=== PATIENT | female | born 1950 | race Caucasian/White ===

== ENCOUNTER 2021-04-11 05:22 | Observation (INO) | payer MEDICARE, MEDICAID, SELFPAY ==
[2021-04-11] VITALS (8 sets, daily range): BP systolic 97–112; BP diastolic 56–88; PULSE 62–99; RESP 16–20; TEMP 36.6–37.7; O2SAT 92–98; BMI 20.9
--- NOTE | ~2021-04-11 | XR_ITS ---
XR abdomen/kub 1V 04/12/2021 09:04 Indication: Small bowel obstruction Procedure: KUB Comparison: 11/03/[address] dated 04/11/2021 Findings: There is dilated small bowel measuring up to 6 cm, consistent with obstruction. There is fe lebron impaction of the rectum. There is mass effect on the bladder, likely secondary to cystic mass see n on prior CT dated 04/11/2021 Impression: 1: Dilated small bowel, consistent with obstruction. 2: Fecal impaction of the rectum. Reviewed, dictated and finalized at location A. F MEDIA OFFICER Impression: 1: Dilated small bowel, consistent with obstruction. 2: Fecal impaction of the rectum.
--- NOTE | ~2021-04-11 | XR_ITS ---
EXAMINATION: XR chest 1V portable 04/11/2021 05:43 INDICATION: Vomiting and dyspnea PROCEDURE: AP portable chest COMPARISON: 12/25/2016 FINDINGS: The lungs are clear. The cardiomediastinal silhouette is enlarged. Chronically elevated le ft diaphragm, suspicious for phrenic nerve paralysis. There are no pleural effusions. There is no p neumothorax suspected. IMPRESSION: 1: NO ACUTE CARDIOPULMONARY DISEASE. Reviewed, dictated and finalized at location A. ORK SYSTEMS CONSULTANT
--- NOTE | ~2021-04-11 | CT_ITS ---
EXAMINATION: CT abdomen pelvis w con DATE: 04/11/2021 07:31 INDICATION: Coffee colored emesis. TECHNIQUE: Computed tomography (CT) of the abdomen and pelvis was performed with 100 cc Omnipaque 350 intravenous contrast. The dose-length product was 439.42 mGy-cm. Automated exposure control and iter ative reconstruction technique were employed. COMPARISON: CT dated 04/04/2011 FINDINGS: There is left lower lobe airspace disease, suspicious for pneumonia. There is a 12 mm right lower lobe nodule, image 7. There is a 3 mm right middle lobe nodule, image 25. There is a pleural-b ased right lower lobe nodule measuring 4 mm, image 27. There is elevation of the left diaphragm. There is fluid in dilated distal esophagus with hiatal hernia. There is significant distention of the stomach and diffusely throughout the small bowel containing fluid, consistent with obstruction with exact transition site not identified. There is fecal impaction of the rectum. There is a large comple x cystic mass centered in the anterior lower abdomen/pelvis measuring 20.3 x 12.8 x 22.3 cm, concerni ng for ovarian adenocarcinoma. The bladder is decompressed with mass effect from these cystic mass. There is intrahepatic and extrahepatic biliary dilatation. No obstructing mass identified. There is a small low-density lesion in the spleen measuring 1 cm, image 30, indeterminate. There is a 2.2 cm co mplex right adrenal mass. There is heterogeneity to the left adrenal gland which is thickened, with 1 .4 cm mass. There is bilateral renal cortical thinning. There are small sclerotic lesions of the pelv is, likely bone islands. There is lower thoracic and lumbar spondylosis. There is levoscoliosis. IMPRESSION: 1. Large complex cystic mass centered in the anterior lower abdomen/pelvis measuring up to 22.3 cm, c oncerning for ovarian adenocarcinoma. 2: Small bowel obstruction, transition site not definitely identified. 3: Intrahepatic and extrahepatic biliary dilatation. Consider correlation with MRCP examination to fu rther evaluate for underlying mass or stone. 4: Right lower lobe nodules measuring up to 12 mm. Cannot exclude metastatic disease. 5: Bilateral adrenal masses which may relate to benign adenomas or metastatic disease. Reviewed, dictated and finalized at location A. CHING CLERK IMPRESSION: 1. Large complex cystic mass centered in the anterior lower abdomen/pelvis noemi uring up to 22.3 cm, concerning for ovarian adenocarcinoma. 2: Small bowel obstruction, transition site not definitely identified. 3: Intrahepatic and extrahepatic biliary dilatation. Consider correlation with MRCP examination to further evaluate for underlying mass or stone. 4: Right lower lobe nodules measuring up to 12 mm. Cannot exclude metastatic d isease. 5: Bilateral adrenal masses which may relate to benign adenomas or metastatic disease.
--- NOTE | 2021-04-11 05:25 | ECG_ITS ---
Measurements Intervals [place] Rate: 103 P: 107 MT: 174 QRS: 173 QRSD: 120 T: 56 QT: 362 QTc: 475 Interpretive Statements SINUS TACHYCARDIA ATRIAL PREMATURE COMPLEXES RIGHT AXIS DEVIATION RIGHT BUNDLE BRANCH BLOCK BASELINE ARTIFACT- I, II, III, AVR, AVL, AVF, V2, V4-V6 ABNORMAL ECG Electronically Signed On 04-11-2021 7:15:21 PHOTO MACHINE OPERATOR by Jairon Warner D.O.
[2021-04-11 05:50] LABS: Basophils Absolute Auto 0.03 K/mm3 (0.00-0.10); Basophils Percent Auto 0.3 % (0.0-1.0); Hemoglobin 15.9 g/dL (11.7-13.8); Immature Granulocyte Absolute 0.03 K/mm3 (0.00-0.00); Immature Granulocyte Percent A 0.3 % (0.0-0.0); Mean Corpuscular HGB Conc 31.8 g/dL (32.0-36.0); Mean Corpuscular Hemoglobin 28.3 pg (27.0-31.0); Mean Platelet Volume 9.7 fl (9.2-11.8); Monocytes Percent Auto 4.4 % (2.0-11.0); Platelet Count Result 392 K/mm3 (150-420); Red Blood Count 5.62 M/mm3 (4.20-5.40); Red Cell Distribution Width 15.1 % (11.6-14.4); White Blood Count 11.4 K/mm3 (4.8-10.8)
[2021-04-11 05:51] LABS: Base Excess ABG 2.1 mmol/L (0-2); HCO3 ABG 24.6 mmol/L (23-29); Oxygen Content ABG 21.9 %vol (16.0-22.0); Oxygen Saturation ABG 96.5 % (95-97); Oxyhemoglobin 94.4 % (94-100); Total Hemoglobin 16.5 g/dL (12.0-18.0); pH ABG 7.49 (7.35-7.45)
[2021-04-11 05:52] LABS: Device ROOM AIR; Modified Allen's Test Pass; Site Drawn RIGHT RADIAL
--- NOTE | 2021-04-11 06:01 | ED.SOB ---
HPI - SOB/Dyspnea General Chief Complaint: Shortness of Breath/Dyspnea Stated Complaint: VOMITING Time Seen by Provider: 04/11/21 05:24 Source: patient, EMS and RN notes reviewed Mode of arrival: EMS Limitations: no limitations History of Present Illness HPI Narrative: Pt vomited coffee-colored emesis. no blood in the stool. no vomiting in the ED. no acute chest pain Onset (ago): hour(s) (2) Timing: intermittent Severity: mild Exacerbating factors: nothing Relieving factors: nothing Known history of: other (depression) Associated symptoms: denies other symptoms Treatment prior to arrival: none Related Data Home oxygen amount: none Home Medications Medication Instructions Recorded Confirmed aripiprazole 5 mg PO DAILY 04/11/21 04/11/21 buspirone 10 mg PO BID 04/11/21 04/11/21 mirtazapine 7.5 mg PO HS 04/11/21 04/11/21 trazodone 50 mg PO HS 04/11/21 04/11/21 Allergies Allergy/AdvReac Type Severity Reaction Status Date / Time strawberry Allergy Mild Unknown Verified 04/11/21 05:40 tomato Allergy Mild Unknown Verified 04/11/21 05:40 coffee (Coffea arabica) Allergy Unknown Unknown Verified 04/11/21 05:40 omeprazole Allergy Unknown Verified 04/11/21 05:40 Review of Systems Review of Systems: All systems reviewed & are unremarkable except as noted in HPI and below PMFSH Past Medical History Medical History (Updated 04/13/21 @ 11:47 by Estevan Peñaloza NP) Gastroenteritis GERD (gastroesophageal reflux disease) Weakness Social History Social History Second hand tobacco smoke exposure: Yes Alcohol intake: former Substance use type: does not use Spiritual care concerns: Yes Exam Const: General: no acute distress and alert Nutritional Appearance: obese Orientation/consciousness: patient oriented x3 Limitations: no limitations Other: Pt has mild tremor HENMT: Head: normal to inspection Ears: external ears normal, TM's normal bilaterally and EAC's normal General nose exam: Normal external nose present and Normal nares present Face and sinus: normal facial exam and sinuses nontender Mouth: Yes lip normal and Yes moist mucous membranes Eyes: Conjunctivae: conjunctivae normal Pupils: Equal, round and reactive pupils present EOM: EOMs intact bilaterally Neck: Neck: normal visual inspection Chest: Chest palpation & inspection: normal inspection of the chest Resp: Effort & Inspection: normal respiratory effort Auscultation: clear to auscultation bilaterally Cardio: Rate: regular rate Rhythm: regular rhythm GI: GI Palp: Yes Soft to palpation and No Tenderness to palpation present (GI) Auscultation: normal bowel sounds Other: pt refused rectal exam : General: Yes bladder normal to palpation and Yes no CVA tenderness Back/Spine/Pelvis: Back: no CVA tenderness Skin: General skin exam: normal color Rashes: no rashes Neuro: General: patient oriented x3, moves all extremities, no meningeal signs, no focal motor deficits and CN's II-XI intact bilaterally Extrem: General: normal to inspection and no pedal edema Psych: Mental Status: mental status grossly normal Thought content: Yes Normal thought content present Course Course Emergency Course: Pt was d/w Hospitalist ELEVATOR PILOT Ms Barreto and accepted for admission via ED MD. Reevaluation(s) Reevaluation #1: DOMINICS. Date: 04/11/21 Time: 06:20 Vital Signs Vital signs: Vital Signs Temperature 36.6 C 04/11/21 05:31 Pulse Rate 92 04/11/21 05:31 Respiratory Rate 18 04/11/21 05:31 Blood Pressure 110/88 04/11/21 05:31 Pulse Oximetry 98 04/11/21 05:31 Temperature 36.6 C 04/13/21 07:35 Pulse Rate 81 04/13/21 07:35 Respiratory Rate 18 04/13/21 07:35 Blood Pressure 101/63 04/13/21 07:35 Pulse Oximetry 91 04/13/21 07:35 MDM - SOB/Dyspnea Differential Diagnosis Differential diagnosis: Likely other Medical Records Attestation: I reviewed the patient's me
--- NOTE | 2021-04-11 06:10 | PC.NURSE ---
Facility called for paperwork, stated will fax over
[2021-04-11 06:11] LABS: Lactic Acid Reflex 1.7 mmol/L (0.4-2.0)
[2021-04-11 06:12] LABS: Alanine Aminotransferase 18 U/L (14-59); Albumin Level 3.4 g/dL (3.4-5.0); Alkaline Phosphatase 104 U/L (46-116); Anion Gap 16 mmol/L (8-16); Aspartate Amino Transferase 21 U/L (15-37); Bilirubin,Total 0.7 mg/dL (0.00-1.00); Blood Urea Nitrogen 47 mg/dL (7-18); Calcium 9.4 mg/dL (8.5-10.1); Carbon Dioxide 26 mmol/L (21-32); Chloride 97 mmol/L (98-108); Estimated CRCL calculation 34 ml/min; Estimated Glomerular Filt Rate 35; Glucose 176 mg/dL (70-99); NT Pro B Type Natriuretic Pept 1894 pg/mL (0-125); Osmolality Calculated 304 mOsm/kg (285-295); Potassium 4.2 mmol/L (3.5-5.1); Sodium 139 mmol/L (136-145); Total Protein 9.2 g/dL (6.4-8.2); Troponin I 42.3 ng/L (0.00-60.4)
[2021-04-11 06:14] LABS: SARS-CoV-2 Ag Negative (Negative)
[2021-04-11] MEDS: ONDANSETRON INJ 4 MG/2 ML VIAL IV PUSH (06:35)
[2021-04-11] MEDS: PANTOPRAZOLE SODIUM IV 40 MG VIAL IV PUSH (06:35)
[2021-04-11] MEDS: SODIUM CHLORIDE 0.9% IV 500 ML 999 ML IV CONT ×2 (06:35→08:29)
--- NOTE | 2021-04-11 06:42 | ECG_ITS ---
Measurements Intervals [place] Rate: 101 P: [place]: 0 QRS: 207 QRSD: 129 T: 49 QT: 376 QTc: 487 Interpretive Statements SINUS TACHYCARDIA FREQUENT ATRIAL PREMATURE COMPLEXES RIGHT BUNDLE BRANCH BLOCK LEFT POSTERIOR FASCICULAR BLOCK BASELINE ARTIFACT- I, II, III, AVR, AVL, AVF, V3 ABNORMAL ECG Electronically Signed On 04-11-2021 8:46:31 CONTINUOUS WELD PIPE MILL SUPERVISOR by Jairon Warner D.O.
--- NOTE | 2021-04-11 06:50 | PC.NURSE ---
Pt refusing all further treatment and states she wishes to go back to facility. Called facility to see if there is POA, facility states no and is calling their public health administrator because they don't want pt back without explanation.
--- NOTE | 2021-04-11 07:01 | PC.NURSE ---
Spoke to Karen Jennings, she spoke with patient and talked her into staying and doing CT [phone]
--- NOTE | 2021-04-11 08:05 | ED.NAVMDI ---
HPI - Nausea/Vomiting/Diarrhea General Chief complaint: Shortness of Breath/Dyspnea Stated complaint: VOMITING Time Seen by Provider: 04/11/21 05:24 Source: patient, EMS and RN notes reviewed Mode of arrival: EMS Limitations: no limitations History of Present Illness HPI Narrative: this is a 70-year-old female that presents via EMS from [facility] with some an episode of vomiting initially felt mildly short of breath, earlier that morning the patient had chocolate cupcake and had emesis after she ate that cupcake. With some mild abdominal discomfort currently no abdominal pain but her abdomen is distended, she she denies any chest pain currently no shortness of breath, her nausea has subsided there is no dysuria no flank pain no fever chills. Patient has a extensive psych history and is currently taking medicine to that affect. Patient also complains of being tired and weakness with no diarrhea or constipation. MD elicited complaint: nausea and vomiting Pertinent past history: anorexia Onset (ago): hour(s) Description of vomiting: food contents Associated nausea: Yes Associated abdominal pain: Yes Location of pain: diffuse Radiation: diffuse Pain consistency: now resolved Severity: mild Exacerbating factors: none Relieving factors: none Related Data Home Medications Medication Instructions Recorded Confirmed aripiprazole 5 mg PO DAILY 04/11/21 04/11/21 buspirone 10 mg PO DAILY 04/11/21 04/11/21 mirtazapine 7.5 mg PO DAILY 04/11/21 04/11/21 trazodone 50 mg PO DAILY 04/11/21 04/11/21 Allergies Allergy/AdvReac Type Severity Reaction Status Date / Time strawberry Allergy Mild Unknown Verified 04/11/21 05:40 tomato Allergy Mild Unknown Verified 04/11/21 05:40 coffee (Coffea arabica) Allergy Unknown Unknown Verified 04/11/21 05:40 omeprazole Allergy Unknown Verified 04/11/21 05:40 Review of Systems Review of Systems: All systems reviewed & are unremarkable except as noted in HPI and below PMFSH Past Medical History Medical History Gastroenteritis Exam Const: General: no acute distress and alert Orientation/consciousness: patient oriented x3 HENMT: Head: normal to inspection Eyes: Pupils: Equal, round and reactive pupils present EOM: EOMs intact bilaterally Direct Ophthalmoscopy: no photophobia Neck: Neck: normal visual inspection, no lymphadenopathy and no meningeal signs Chest: Chest palpation & inspection: normal inspection of the chest Resp: Effort & Inspection: normal respiratory effort Auscultation: clear to auscultation bilaterally Cardio: Rate: regular rate and tachycardic Rhythm: abnormal rhythm GI: Inspection: distended GI Palp: Yes Rigid due to palpation Auscultation: Hypoactive bowel sounds present : General: Yes no CVA tenderness Urinary Catheter: Urinary Catheter: patent and draining Skin: General skin exam: normal color Rashes: no rashes Neuro: General: patient oriented x3, moves all extremities, no meningeal signs and no focal motor deficits Extrem: General: normal to inspection and no pedal edema Psych: Appearance: disheveled Mental Status: mental status grossly normal Attitude: cooperative Course Course Emergency Course: labs and CT scan of abdomen reviewed with patient which show small bowel obstruction with some not I would transition point with a large complex cystic mass measuring 22.3cm, she is COVID negative her troponins are negative lactic acid is 1.7 current dose O2 sats 93% with a blood pressure 104/75. The patient received IV fluids. After discussion with the patient with the above findings the patient subsequently once to changed to a DNR status and comfort care only on hospice. Talked to Karen the process excellence manager of [facility] and she is aware of the patient Condition. will admit patient, patient DNR and comfort care at this point. Vital Signs Vital signs: Vital Signs Temperature
[2021-04-11] MEDS: ENOXAPARIN 40 MG/0.4 ML SYRINGE SUB-Q (09:35)
--- NOTE | 2021-04-11 10:10 | PC.NURSE ---
Patient arrived to floor from ER via stretcher. Two assist to transfer from stretcher to bed. Patient is NPO due to bowel obstruction. Hospice to consult with patient tomorrow r/t abdominal mass with mets.
[2021-04-11] MEDS: SODIUM CHLORIDE 0.9% IV 1,000 ML 100 ML IV CONT ×2 (11:10→21:23)
[2021-04-12] VITALS: BP 112/71; PULSE 85; RESP 18; TEMP 37.2; O2SAT 92
[2021-04-12 05:16] LABS: Basophils Absolute Auto 0.01 K/mm3 (0.00-0.10); Basophils Percent Auto 0.1 % (0.0-1.0); Hematocrit 42.3 % (35.0-42.0); Hemoglobin 13.2 g/dL (11.7-13.8); Immature Granulocyte Absolute 0.02 K/mm3 (0.00-0.00); Immature Granulocyte Percent A 0.3 % (0.0-0.0); Lymphocytes Absolute Auto 0.83 K/mm3 (1.10-4.50); Lymphocytes Percent Auto 11.6 % (18.0-42.0); Mean Corpuscular HGB Conc 31.2 g/dL (32.0-36.0); Mean Corpuscular Hemoglobin 28.5 pg (27.0-31.0); Mean Corpuscular Volume 91.4 fL (78.0-102.0); Mean Platelet Volume 9.5 fl (9.2-11.8); Monocytes Absolute Auto 0.43 K/mm3 (0.10-0.90); Neutrophils Absolute Auto 5.9 K/mm3 (1.7-7.2); Platelet Count Result 305 K/mm3 (150-420); Red Blood Count 4.63 M/mm3 (4.20-5.40); Red Cell Distribution Width 15.7 % (11.6-14.4); White Blood Count 7.2 K/mm3 (4.8-10.8)
[2021-04-12 05:27] LABS: Anion Gap 8 mmol/L (8-16); Blood Urea Nitrogen 56 mg/dL (7-18); Calcium 8.4 mg/dL (8.5-10.1); Carbon Dioxide 26 mmol/L (21-32); Chloride 105 mmol/L (98-108); Estimated CRCL calculation 32 ml/min; Estimated Glomerular Filt Rate 40; Glucose 100 mg/dL (70-99); Osmolality Calculated 303 mOsm/kg (285-295); Potassium 4.9 mmol/L (3.5-5.1); Sodium 139 mmol/L (136-145)
[2021-04-12] MEDS: ONDANSETRON INJ 4 MG/2 ML VIAL IV PUSH ×2 (07:20→13:32)
[2021-04-12] MEDS: SODIUM CHLORIDE 0.9% IV 1,000 ML 100 ML IV CONT ×2 (07:41→17:21)
[2021-04-12 08:00] VITALS: BP 104/69; PULSE 83; RESP 16; TEMP 36.4; O2SAT 91
--- NOTE | 2021-04-12 09:26 | PC.NURSE ---
phone call to [facility] to inform them of possible return today and she would be under hospice care. talked with photographic hand developer josué. she is aware and claims [facility] is okay. phone call to [facility] and waiting return call.
[2021-04-12] MEDS: MIRTAZAPINE 7.5 MG TABLET PO (09:47)
[2021-04-12] MEDS: busPIRone HCL 5 MG TABLET 10 MG PO (09:47)
[2021-04-12] MEDS: traZODone HCL 50 MG TABLET PO (09:48)
[2021-04-12] MEDS: ENOXAPARIN 40 MG/0.4 ML SYRINGE SUB-Q (09:48)
[2021-04-12] MEDS: ARIPiprazole 2 MG TABLET 4 MG PO (09:54)
--- NOTE | 2021-04-12 10:35 | PC.NURSE ---
tania from [facility] called back and paperwork sent per fax to them as requested.
[2021-04-12] MEDS: BISACODYL 10 MG SUPPOSITORY RECTAL (12:00)
--- NOTE | 2021-04-12 15:08 | PC.NURSE ---
Patient had suppository around noon, and was able to expel 3 quarter size pieces of stool, however there is a large amount in her rectal vault. Patient back in bed and resting.
[2021-04-12 15:28] VITALS: BP 108/63; PULSE 96; RESP 18; TEMP 36.2; O2SAT 92
--- NOTE | 2021-04-12 17:28 | PC.NURSE ---
pt up to bedside commode, sm amt of liquid stool and golf ball sized formed bm, palpable hard mass in rectal area, new pull up applied, pt back in bed with tray set up, call light in reach, iv running
[2021-04-12] MEDS: ACETAMINOPHEN 325 MG TABLET 650 MG PO (17:58)
--- NOTE | 2021-04-12 20:42 | PM.IMHP ---
H&P: HPI History of Present Illness Date/Time: 04/12/21 20:42 Mrs Mendes is a 70 year old female from [facility]. Patient symptoms began as vomiting and feeling slightly short of breath after patient had a. Patient was having some abdominal pain that worsened after eating and causing nausea. According to patient she currently has no abdominal pain although her stomach is hard and distended. Patient has had no diarrhea or constipation stating that she had a small stool this morning. Patient has a very long extensive psychiatric history in which she is currently being treated for and maintained with medication. According to CT scan of abdomen patient has a abdominal mass which is suspicious for cancer with possible mets due to Large complex cystic mass centered in the anterior lower abdomen/pelvis measuring up to 22.3 cm, concerning for ovarian adenocarcinoma.Small bowel obstruction, identified with Right lower lobe nodules measuring up to 12 mm that cannot exclude metastatic disease, Bilateral adrenal masses which may relate to benign adenomas or metastatic disease. I did have discussion with patient about this and she has informed me that she does not want anything done concerning this and would like to be able to use the bathroom eat and drink but does not want to follow up with oncology . Call placed to [facility] and spoke with district captain who currently is in agreement to take patient back since she has decided to go onto hospice. [facility] has agreed to see patient once she is discharged at [facility] on Tuesday. Chief Complaint: Small Bowel obstruction , Abdominal mass sucspious for Cancer Review of Systems Review of Systems: abdominal pain with constipation All systems reviewed & are unremarkable except as noted in HPI and below PMFSH Past Medical History Medical History (Updated 04/13/21 @ 11:47 by Estevan Peñaloza NP) Gastroenteritis GERD (gastroesophageal reflux disease) Weakness Social History Social History Second hand tobacco smoke exposure: Yes Alcohol intake: former Substance use type: does not use Spiritual care concerns: Yes Meds Home Medications and Allergies Home Medications Medication Instructions Recorded Confirmed Type aripiprazole 5 mg PO DAILY 04/11/21 04/11/21 History buspirone 10 mg PO BID 04/11/21 04/11/21 History mirtazapine 7.5 mg PO HS 04/11/21 04/11/21 History trazodone 50 mg PO HS 04/11/21 04/11/21 History docusate sodium [Colace] 100 mg PO DAILY #30 cap 04/13/21 Rx ondansetron 4 mg PO Q8H PRN #14 tablet 04/13/21 Rx Allergies Allergy/AdvReac Type Severity Reaction Status Date / Time strawberry Allergy Mild Unknown Verified 04/11/21 05:40 tomato Allergy Mild Unknown Verified 04/11/21 05:40 coffee (Coffea arabica) Allergy Unknown Unknown Verified 04/11/21 05:40 omeprazole Allergy Unknown Verified 04/11/21 05:40 Vital Signs Vital Signs - 24 hr 04/12/21 00:00 04/12/21 08:00 04/12/21 15:28 Temperature 99.0 F 97.6 F 97.2 F L Pulse Rate 85 83 96 Respiratory Rate 18 16 18 Blood Pressure 112/71 104/69 108/63 Pulse Oximetry 92 91 92 Exam Narrative: GENERAL:ill-appearing, well-nourished, and in no acute distress. HEAD:Normocephalic. EYES: PERRLA ENT: Nares clear, no rhinorrhea CHEST: Clear to auscultation. No respiratory distress. HEART: Regular rate and rhythm. Normal peripheral pulses. ABDOMEN: Soft, tender w p, distended, hypo active bowel sounds. EXTREMITIES:decreased range of motion. 3+pitting edema. SKIN: Warm, dry, no rash. NEURO: No focal deficits. Alert and oriented x3. H&P: Results Labs Labs: Short CBC 04/12/21 Range/Units 05:11 WBC 7.2 (4.8-10.8) K/mm3 Hgb 13.2 (11.7-13.8) g/dL Hct 42.3 H (35.0-42.0) % Plt Count 305 (150-420) K/mm3 [facility] 04/12/21 05:11 Sodium 139 Potassium 4.9 Chloride 105 Carbon Dioxide 26 BUN 56 H Creatin
[2021-04-13] VITALS: BP 102/68; PULSE 62; RESP 14; TEMP 36.8; O2SAT 94
[2021-04-13] MEDS: SODIUM CHLORIDE 0.9% IV 1,000 ML 100 ML IV CONT (03:25)
[2021-04-13 07:35] VITALS: BP 101/63; PULSE 81; RESP 18; TEMP 36.6; O2SAT 91
[2021-04-13] MEDS: ENOXAPARIN 40 MG/0.4 ML SYRINGE SUB-Q (09:44)
[2021-04-13] MEDS: ARIPiprazole 2 MG TABLET 4 MG PO (09:44)
[2021-04-13] MEDS: busPIRone HCL 5 MG TABLET 10 MG PO (09:44)
--- NOTE | 2021-04-13 10:44 | PM.DS ---
DS: Admitting Diagnosis Discharge Date 04/13/2021 Admitting Diagnosis Small bowel obstruction resolving, Abdominal mass ( not treating per patient), Hospice care DS: Discharge Diagnosis Discharge Diagnosis (1) SBO (small bowel obstruction): Code(s): K56.609 - Unspecified intestinal obstruction, unspecified as to partial versus complete obstruction Status: Acute Assessment and Plan: NPO04/12/2021 Clear liquid Bowel rest IVF Suppository completed Zofran for nausea Monitor for bowel movement REpeat KUB no change with large amount of stool noted at the rectum ---- Patient is now having bowel movement after [id number]/06/2022 Patient is having large amount of stool rectal exam reveal stool but no more blockage or hard stool felt at this time. RESOLVING (2) Abdominal mass: Qualifiers: Abdominal location: generalized Qualified Code(s): R19.07 - Generalized intra-abdominal and pelvic swelling, mass and lump Code(s): R19.00 - Intra-abdominal and pelvic swelling, mass and lump, unspecified site Status: Acute Assessment and Plan: Large complex cystic mass centered in the anterior lower abdomen/pelvis measuring up to 22.3 cm, concerning for ovarian adenocarcinoma. consider consult for Oncology patient refuses at this time Consult to hospice Will see patient at [facility]f on Tuesday Detention will to take patient back on Hospice (3) Admission for hospice care: Code(s): Z51.5 - Encounter for palliative care Status: Acute Assessment and Plan: Will see patient at [facility] willing to take patient on hospcie follow up with primary care provider in 5-7 days. DS: Summary Hospital Course Reason for hospitalization: Small bowel obstruction, Abdominal Mass Hospital Course: Mrs Mendes is a 70 year old female from [facility]. Patient symptoms began as vomiting and feeling slightly short of breath after patient had a. Patient was having some abdominal pain that worsened after eating and causing nausea. According to patient she currently has no abdominal pain although her stomach is hard and distended. Patient has had no diarrhea or constipation stating that she had a small stool this morning. Patient has a very long extensive psychiatric history in which she is currently being treated for and maintained with medication. According to CT scan of abdomen patient has a abdominal mass which is suspicious for cancer with possible mets due to Large complex cystic mass centered in the anterior lower abdomen/pelvis measuring up to 22.3 cm, concerning for ovarian adenocarcinoma.Small bowel obstruction, identified with Right lower lobe nodules measuring up to 12 mm that cannot exclude metastatic disease, Bilateral adrenal masses which may relate to benign adenomas or metastatic disease. I did have discussion with patient about this and she has informed me that she does not want anything done concerning this and would like to be able to use the bathroom eat and drink but does not want to follow up with oncology . Call placed to [facility] and spoke with painting instructor who currently is in agreement to take patient back since she has decided to go onto hospice. [facility] has agreed to see patient once she is discharged at [facility] on Tuesday. Chief Complaint: Small Bowel obstruction , Abdominal mass suspicious for Cancer. During patient's hospital stay she was treated with IV fluids, n.p.o. bowel rest, suppository. Patient has have been having multiple bowel movements and has shown improvement she currently has bowel sounds stomach is no longer hard or distended. I personally did a rectal exam with no hard obstructing at the rectum at this time currently she is having soft stools initially she was having some diarrhea which is slowly starting to resolve. Patient states that she is not nauseated anymore and her stomach feels a lot better.
--- NOTE | 2021-04-13 16:05 | PC.NURSE ---
Patient is discharging back to [facility] in [place]. IV site removed, tip intact. Dressing applied to site. Patient assisted to dress in clothing from home. All discharge instructions and education reviewed with patient, patient states understanding. All belongings gathered and sent home with patient. Patient denies any questions at discharge. This nurse accompanied patient to front door via wheelchair, left via private vehicle with medication care manager Karen.
--- NOTE | 2021-04-17 13:27 | PC.NURSE ---
Unable to contact for discharge call back.
== END 2021-04-13 16:05 | disposition hospice, home (50) ==
LOC: CHSED 09:02 → CHS2ND 04-13 07:40
PROVIDERS: Emergency Medicine; Nurse Practitioner Family; Admitting Provider Emergency Medicine; Emergency Provider Emergency Medicine; PCP Emergency Medicine; Visit Provider Emergency Medicine
DX: K56.609 Unspecified intestinal obstruction, unspecified as to partial versus complete obstruction (principal); R19.07 Generalized intra-abdominal and pelvic swelling, mass and lump; K21.9 Gastro-esophageal reflux disease without esophagitis; F31.9 Bipolar disorder, unspecified; Z20.822 Contact with and (suspected) exposure to COVID-19; Z51.5 Encounter for palliative care
CPT/HCPCS: 36415; 36600; 71045; 74018; 74177; 80048; 80053; 82805; 83605; 83880; 84484; 85025; 87426; 93005; 96361; 96365; 96372; 96375; 96376; 99285; A9270; C9113; C9803; G0378; J0696; J1650; J2405; J7030; J7040; Q9967